=== PATIENT | male | born 1985 | race Two or more races ===

== ENCOUNTER 2023-04-07 11:26 | Emergency (ER) | payer OTHER ==
[~2023-04-07] VITALS: Ht 170.2 cm; Wt 68.0 kg
[2023-04-07 11:32] VITALS: BP 106/63
--- NOTE | 2023-04-07 11:32 | NUR ---
BIBS STATING HE WANTS TO GET AN STD TEST, STATES HE DOES NOT BELIEVE HE HAS BEEN EXPOSED. VITALS ARE WITHIN NORMAL LIMITS
--- NOTE | 2023-04-07 11:53 | NUR ---
URINE COLLECTED AND SENT
--- NOTE | 2023-04-07 12:03 | NUR ---
US TECH AT BEDSIDE
[2023-04-07 12:24] LABS: BILIRUBIN,URINE NEGATIVE (NEGATIVE); COLOR,URINE YELLOW (YELLOW); LEUKOCYTE ESTERASE ,URINE NEGATIVE (NEGATIVE); NITRITE, URINE NEGATIVE (NEGATIVE); PROTEIN,URINE NEGATIVE (NEGATIVE); UGLUCOSE NEGATIVE (NEGATIVE); UROBILINOGEN,URINE 0.2 EU/dL (0.2)
[2023-04-07] MEDS ORDERED: IBUP-1955 PO (13:30)
--- NOTE | 2023-04-07 13:34 | NUR ---
Patient discharged to home in stable condition. Written and verbal after care instructions given. Patient verbalizes understanding of instruction.
== END 2023-04-07 13:34 | disposition home or self-care (01) ==
LOC: ER 11:31
DX: Z11.3 Encounter for screening for infections with a predominantly sexual mode of transmission (principal)
CPT/HCPCS: 36415; 76870-TC; 86592; 86593; 87491; 87591

== ENCOUNTER 2024-11-14 00:42 | Emergency (ER) | payer OTHER ==
[~2024-11-14] VITALS: Ht 172.7 cm; Wt 77.1 kg
[~2024-11-14 00:42] MED LIST: IBUP-1955 PO
[2024-11-14] MEDS ORDERED: PANTOPRAZOLE 40 MG VIAL ONE (02:27)
[2024-11-14] MEDS ORDERED: KETOROLAC TROMETHAMINE 15 MG/ML VIAL ONE (02:27)
[2024-11-14] MEDS ORDERED: FAMOTIDINE/PF INJ 20 MG/2 ML VIAL IV ONE (02:27)
[2024-11-14] MEDS: PANTOPRAZOLE 40 MG VIAL IV ONE (02:44)
[2024-11-14] MEDS: KETOROLAC TROMETHAMINE 15 MG/ML VIAL IV ONE (02:44)
[2024-11-14] MEDS: FAMOTIDINE/PF INJ 20 MG/2 ML VIAL IV ONE (02:44)
[2024-11-14] MEDS: IV NS 0.9% 1,000 ML BAG IV ONE (02:47)
[2024-11-14 03:03] LABS: BASOPHILS # (AUTO) 0.1 K/uL (0.0-0.2); BASOPHILS % (AUTO) 0.6 % (0.0-2.0); EOSINOPHILS # (AUTO) 0.4 K/uL (0.0-0.7); EOSINOPHILS % (AUTO) 4.5 % (0.0-6.0); HEMATOCRIT 41 % (39-51); HEMOGLOBIN 14.5 g/dL (13.5-17.5); LYMPHOCYTES # (AUTO) 3.7 K/uL (0.8-4.8); LYMPHOCYTES % (AUTO) 41.5 % (20.0-44.0); MEAN CORPUSCULAR HEMOGLOBIN 35 PG (26.0-33.0); MEAN CORPUSCULAR HGB CONC 36 g/dl (31.0-36.0); MEAN CORPUSCULAR VOLUME 97 fL (80-96); MONOCYTES # (AUTO) 0.8 K/uL (0.1-1.30); MONOCYTES % (AUTO) 9.2 % (2.0-12.0); NEUTROPHILS # (AUTO) 3.9 K/uL (1.8-8.9); NEUTROPHILS % (AUTO) 44.2 % (43.0-81.0); PLATELET COUNT (AUTO) 301 K/uL (150-450); RED BLOOD CELL COUNT(AUTO) 4.19 MIL/uL (4.5-6.0); RED CELL DISTRIBUTION WIDTH 17.4 % (11.5-15.0); WHITE BLOOD COUNT (AUTO) 8.9 K/uL (4.3-11.0)
[2024-11-14 03:13] LABS: CALCIUM, SERUM 8.4 mg/dL (8.5-10.1)
[2024-11-14 03:28] LABS: ALBUMIN 3.7 g/dL (3.4-5.0); BILIRUBIN,DIRECT 0.1 mg/dL (0.0-0.2); BILIRUBIN,TOTAL 0.4 mg/dL (0.2-1.0); TOTAL PROTEIN, SERUM 7.5 g/dL (6.4-8.2)
[2024-11-14] MEDS ORDERED: KETO10TA2 PO (03:30)
[2024-11-14 05:18] VITALS: BP 134/81; TEMP 98; O2SAT 98
== END 2024-11-14 05:19 | disposition home or self-care (01) ==
LOC: ER 00:45
DX: R07.89 Other chest pain (principal); R10.13 Epigastric pain
CPT/HCPCS: 99285; 96374; 71045; 96361; 96375 ×2; 93005; 85025; 80048; 83690; 80076; 36415; 84484; J3490; J7030; J2470; J1885

== ENCOUNTER 2024-11-16 17:35 | Emergency (ER) | payer OTHER ==
[~2024-11-16] VITALS: Ht 170.2 cm; Wt 93.9 kg
[~2024-11-16 17:35] MED LIST changes: +KETO10TA2 PO
[2024-11-16 21:01] LABS: APPEARANCE,URINE CLEAR (CLEAR); COLOR,URINE YELLOW (YELLOW); PROTEIN,URINE NEGATIVE (NEGATIVE)
[2024-11-16 21:02] LABS: BILIRUBIN,URINE NEGATIVE (NEGATIVE); BLOOD, URINE TRACE Ery/uL (NEGATIVE); KETONES,URINE NEGATIVE (NEGATIVE); LEUKOCYTE ESTERASE ,URINE NEGATIVE (NEGATIVE); NITRITE, URINE NEGATIVE (NEGATIVE); UGLUCOSE NEGATIVE (NEGATIVE); UROBILINOGEN,URINE 0.2 EU/dL (0.2)
[2024-11-16 21:11] LABS: WBC,URINE 0-2 /HPF (0-3)
[2024-11-16 21:14] LABS: ADD URINE CULTURE NO; BACTERIA,URINE Few /HPF (None Seen); SQUAMOUS EPITHELIAL CELL,UR 0-2 /HPF (None Seen)
[2024-11-16] MEDS ORDERED: DOXY100C2 PO (21:17)
[2024-11-16] MEDS ORDERED: CEFTRIAXONE 500 MG VIAL ONE (21:40)
[2024-11-16] MEDS: CEFTRIAXONE 500 MG VIAL IM ONE (21:46)
[2024-11-16 22:06] VITALS: BP 137/86; TEMP 98; O2SAT 99
[2024-11-18 05:08] LABS: RAPID PLASMA REAGIN QUAL. Non Reactive (Non Reactive)
[2024-11-18 22:06] LABS: CHLAMYDIA TRACHOMATIS NAA Negative (Negative); NEISSERIA GONORRHOEAE NAA Negative (Negative)
== END 2024-11-16 22:07 | disposition home or self-care (01) ==
LOC: ER 19:38
DX: R30.0 Dysuria (principal); Z11.3 Encounter for screening for infections with a predominantly sexual mode of transmission
CPT/HCPCS: 99283; 86592; 86593; 96372; 81001; 36415; 87491; 87591; J0696

== ENCOUNTER 2024-12-17 20:15 | Emergency (ER) | payer OTHER ==
[~2024-12-17] VITALS: Ht 170.2 cm; Wt 93.0 kg
[~2024-12-17 20:15] MED LIST changes: +DOXY100C2 PO
[2024-12-17 20:59] VITALS: BP 138/93; TEMP 98.2; O2SAT 99
[2024-12-17] MEDS ORDERED: IBUP-1490 PO (21:11)
[2024-12-17] MEDS ORDERED: IBUPROFEN 600 MG TABLET ONE (21:16)
[2024-12-17] MEDS: IBUPROFEN 600 MG TABLET PO ONE (21:17)
== END 2024-12-17 21:18 | disposition home or self-care (01) ==
LOC: ER 20:18
DX: M79.10 Myalgia, unspecified site (principal); M79.643 Pain in unspecified hand; M54.9 Dorsalgia, unspecified

== ENCOUNTER 2025-09-19 22:51 | Emergency (ER) | payer OTHER ==
[~2025-09-19] VITALS: Ht 172.7 cm; Wt 99.8 kg
[~2025-09-19 22:51] MED LIST changes: +IBUP-1490 PO
[2025-09-19] MEDS: IV NS 0.9% 1,000 ML BAG IV ONE ×2 (23:30)
[2025-09-19 23:32] LABS: PLATELET COUNT (AUTO) 342 K/uL (150-450); RED BLOOD CELL COUNT(AUTO) 5.17 MIL/uL (4.5-6.0); RED CELL DISTRIBUTION WIDTH 14.7 % (11.5-15.0); WHITE BLOOD COUNT (AUTO) 10.1 K/uL (4.3-11.0)
[2025-09-19 23:44] LABS: CALCIUM, SERUM 8.7 mg/dL (8.5-10.1); CREATININE 1.1 mg/dL (0.6-1.3); SODIUM SERUM 143 mmol/L (136-145); UREA NITROGEN, BLOOD 13 mg/dL (7-18)
[2025-09-19] MEDS: ACETAMINOPHEN ES 500 MG TABLET PO ONE (23:45)
[2025-09-19 23:51] LABS: LACTIC ACID 3.6 mmol/L (0.4-2.0)
[2025-09-19 23:54] LABS: ALCOHOL, BLOOD 321 mg/dL (0-10); ASPARTATE AMINOTRANSFERASE 102 U/L (15-37); TOTAL PROTEIN, SERUM 8.3 g/dL (6.4-8.2)
[2025-09-20 00:01] LABS: APPEARANCE,URINE CLEAR (CLEAR); BLOOD, URINE TRACE-INTA Ery/uL (NEGATIVE); LEUKOCYTE ESTERASE ,URINE NEGATIVE (NEGATIVE); NITRITE, URINE NEGATIVE (NEGATIVE); UGLUCOSE NEGATIVE (NEGATIVE)
[2025-09-20 00:12] LABS: INR 1.0 (0.91-1.10)
[2025-09-20 00:14] LABS: AMPHETAMINE, URINE NEGATIVE (NEGATIVE); BARBITURATE, URINE NEGATIVE (NEGATIVE); BENZODIAZEPINE, URINE NEGATIVE (NEGATIVE); CANNABINOID, URINE NEGATIVE (NEGATIVE); COCCAINE, URINE NEGATIVE (NEGATIVE); OPIATE, URINE NEGATIVE (NEGATIVE)
[2025-09-20 00:26] LABS: ADD URINE CULTURE NO; SQUAMOUS EPITHELIAL CELL,UR Few /HPF (None Seen)
[2025-09-20] MEDS ORDERED: LORAZEPAM INJ 2 MG/ML VIAL ONE (01:09)
[2025-09-20] MEDS: LORAZEPAM INJ 2 MG/ML VIAL IV ONE (01:13)
[2025-09-20] MEDS ORDERED: HALOPERIDOL LACTATE INJ 5 MG/ML VIAL ONE (03:57)
[2025-09-20] MEDS: HALOPERIDOL LACTATE INJ 5 MG/ML VIAL IM ONE (04:46)
[2025-09-20] MEDS ORDERED: PIPERACI/TAZO 3.375GM/D5W 50ML PB IV ONE (06:37)
[2025-09-20] MEDS: PIPERACILLIN /TAZOBACTAM 3.375 G in IV D5W 50 ML IV ONE (06:45)
[2025-09-20] MEDS ORDERED: AMOX-430 PO (08:54)
[2025-09-20 08:57] VITALS: BP 141/81; TEMP 99.2; O2SAT 97
== END 2025-09-20 08:58 | disposition left against medical advice (07) ==
LOC: ER 22:55
DX: F10.229 Alcohol dependence with intoxication, unspecified (principal); R50.9 Fever, unspecified; Z79.899 Other long term (current) drug therapy; Z20.822 Contact with and (suspected) exposure to COVID-19; Y90.8 Blood alcohol level of 240 mg/100 ml or more
CPT/HCPCS: 99285; 96361; 93005; 87804 ×2; 71045; 85025; 80048; 87040 ×2; 87086; 83605 ×3; 80076; 81001; 36415 ×2; 85730; 87426; 80143; 80320; 80307; 96372; 96365; 96375; 87081; J7030; J2060; J1630; J2543 ×2; J7060; G0480